=== PATIENT | male | born 1965 | race Two or more races ===

== ENCOUNTER 2020-06-16 13:08 | Emergency (ER) | payer OTHER, MEDICAID ==
[~2020-06-16] VITALS: Ht 165.1 cm; Wt 50.0 kg
[2020-06-16] MEDS ORDERED: IPRATROPIUM/ALBUTEROL 0.5-3(2.5)MG/3ML NEB HHN ONE (13:45)
[2020-06-16] MEDS ORDERED: P50 MT (14:37)
[2020-06-16] MEDS ORDERED: ALBU6.7H9 INH (14:37)
[2020-06-16] MEDS ORDERED: PREDNISONE 20MG TABLET PO ONE (14:45)
[2020-06-16 15:14] VITALS: BP 126/68
== END 2020-06-16 15:15 | disposition home or self-care (01) ==
LOC: ER 13:38
DX: J20.9 Acute bronchitis, unspecified (principal); E11.9 Type 2 diabetes mellitus without complications; E78.00 Pure hypercholesterolemia, unspecified; I10 Essential (primary) hypertension; Z98.890 Other specified postprocedural states; F17.290 Nicotine dependence, other tobacco product, uncomplicated
CPT/HCPCS: 71045; 94640; 99283; J7512